=== PATIENT | male | born 1950 | race Caucasian/White ===

== ENCOUNTER → 2018-02-02 | Outpatient (CLI) | payer MEDICARE ==
[~2018-02-02] MED LIST: ASPI325 PO; TAMS.4ER PO
== END | disposition home or self-care (01) ==
LOC: LAB EV 19:12 → LAB SHORT 19:12
DX: N39.0 Urinary tract infection, site not specified (principal)
CPT/HCPCS: 87077; 87086; 87186

== ENCOUNTER 2024-04-01 06:31 | Day surgery (SDC) | payer MEDICARE ==
[~2024-04-01] VITALS: Ht 185.4 cm; Wt 93.0 kg
[2024-04-01] VITALS (11 sets, daily range): BP systolic 112–142; BP diastolic 76–91
[~2024-04-01 06:31] MED LIST changes: +ATOR10 PO; +Aspir 8181 MG PO; +LISI20 PO
[2024-04-01] MEDS ORDERED: NS 1,000 ML IV ONE ×2 (06:44→07:24)
[2024-04-01] MEDS ORDERED: Heparin Sodium 1000 Units/ML 10ML MDV ONE ×2 (06:44→08:11)
[2024-04-01] MEDS ORDERED: Verapamil HCL 2.5 MG/ML 2ML Injection ONE (06:44)
[2024-04-01] MEDS ORDERED: NS 250 ML IV ONE (06:44)
[2024-04-01] MEDS ORDERED: Nitroglycerin 2 MG/20 ML BTL ONE (06:45)
[2024-04-01] MEDS ORDERED: FentaNYL Citrate 50 MCG/ML 2 ML Injection ONE (07:23)
[2024-04-01] MEDS ORDERED: Midazolam HCl 1MG / ML 2ML Vial ONE (07:23)
--- NOTE | 2024-04-01 10:30 | NUR ---
10CC AIR REMOVED FROM R TR BAND. NEG BLEEDING OR SWELLING. PT AMB TO BATHROOM /S DIFFICULTY.
[2024-04-01] MEDS ORDERED: LOSARTAN-HCTZ1 EACH PO (11:02)
--- NOTE | 2024-04-01 12:04 | NUR ---
PT AND FAMILY VERBALIZED UNDERSTANDING OF WRITTEN AND VERBAL D/C INST. IV REMOVED. R TR BAND REMOVED AND CLOTH DOT DRSG PLACED. R WRIST SPLINT REAPPLIED. PT TAKEN OUT OF THE HRT CENTER VIA W/C.
== END 2024-04-01 11:30 | disposition home or self-care (01) ==
LOC: MHTC 06:31
DX: I25.10 Atherosclerotic heart disease of native coronary artery without angina pectoris (principal); I10 Essential (primary) hypertension; E78.5 Hyperlipidemia, unspecified
CPT/HCPCS: 76937; 85347; 93458; 93571; 99152; 99153; C1769; C1887; C1894; J1644; J2250; J3010; J7030; J7050; Q9967